=== PATIENT | female | born 1965 | race Caucasian/White ===

== ENCOUNTER 2024-08-08 15:54 | Emergency (ER) | payer OTHER, SELFPAY ==
[2024-08-08 15:57] VITALS: BP 162/82
--- NOTE | 2024-08-08 16:16 | ED.GENMED ---
History of Present Illness
<Radha Swanson PA-C - Last Filed: 08/08/24 20:36>
General
Chief Complaint: Blood Pressure Problem
Source: patient
Exam Limitations: none
Time Seen by Provider: 08/08/24 16:11
Nursing documentation reviewed up to this point in time: agreed with
History of Present Illness
History of Present Illness:
This is a 59-year-old female with a past medical history of hypertension, hyperlipidemia, IBS, diabetes presents emergency department today with concerns of left-sided jaw pain, intermittent chest pressure since this morning. Patient reports that
he started to develop a headache this morning. She feels it on the left side of her head. She states that she also started to develop soreness in her jaw, worse on the left. She denies worsening pain with eating. She also notes a slight chest
pressure. She denies shortness of breath, denies altered mental status. 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
taken off of it. Patient currently does not take anything for her blood pressure. She told her pcp about her ongoing symptoms and was told it was anxiety. She denies any changes to her vision. Denies head or neck trauma. Denies nausea or vomiting.
Review of Systems
<Radha Swanson PA-C - Last Filed: 08/08/24 20:36>
Review of Systems
All Other Systems: ROS reviewed and negative except as documented in HPI and ROS
Phy Exam
<Radha Swanson PA-C - Last Filed: 08/08/24 20:36>
Physical Exam
Physical Exam:
General: Patient is well appearing and in no acute distress; non-toxic
Skin: Warm and dry, no rashes or lesions
Head: Normocephalic, atraumatic. No temporal artery tenderness.
Eyes: Sclera non-icteric. EOMs intact. PERRLA.
Cardiac: Regular rate and rhythm, no murmurs
Peripheral Vascular: No lower extremity swelling or edema
Pulm: Normal respiratory effort, no wheezes, rales, or rhonchi
Abdomen: No abdominal tenderness to palpation
Neuro: CN II-XII intact, no focal neurologic deficits.
Psychiatric: Appropriate mood and affect.
Course
<Radha Swanson PA-C - Last Filed: 08/08/24 20:36>
Orders/Labs/Results
Orders:
Orders
08/08/24 15:58
EKG [Electrocardiogram (*1)] Urgent
Reason for Study: Chest Pain
EKG- Treatment ONCE
08/08/24 17:20
Complete Blood Count/With Diff Urgent
Comprehensive Metabolic Panel Urgent
Troponin I Urgent
08/08/24 17:21
Acetaminophen [Tylenol] 1,000 mg PO NOW STA
08/08/24 17:48
Electrocardiogram (*1) Urgent
Reason for Study: Shortness of Breath
EKG- Treatment ONCE
08/08/24 19:38
Troponin I Urgent
Abnormal Lab Results
08/08/24
17:20
RBC 4.16 L 10^6/uL
(4.20-5.40)
Hgb 11.6 L g/dL
(12.0-16.0)
Hct 33.9 L %
(37.0-47.0)
Potassium 5.2 H mmol/L
(3.5-5.1)
Carbon Dioxide 31 H mmol/L
(22-30)
Glucose 109 H mg/dl
(70-99)
08/08/24 17:20
08/08/24 17:20
Vital Signs
Initial and Last Documented VS:
Initial Vital Signs
Temp Pulse Resp BP Pulse Ox
97.9 F 66 18 162/82 99
08/08/24 15:57 08/08/24 15:57 08/08/24 15:57 08/08/24 15:57 08/08/24 15:57
Last Documented Vital Signs
Temp Pulse Resp BP Pulse Ox
97.9 F 66 18 137/71 96
08/08/24 15:57 08/08/24 15:57 08/08/24 15:57 08/08/24 20:00 08/08/24 20:15
<Tanika Dyson MD - Last Filed: 08/08/24 17:20>
Orders/Labs/Results
Orders:
Orders
08/08/24 15:58
EKG [Electrocardiogram (*1)] Urgent
Reason for Study: Chest Pain
EKG- Treatment ONCE
08/08/24 17:20
Complete Blood Count/With Diff Urgent
Comprehensive Metabolic Panel Urgent
Troponin I Urgent
08/08/24 17:21
Acetaminophen [Tylenol] 1,000 mg PO NOW STA
08/08/24 17:48
Electrocardiogram (*1) Urgent
Reason for Study: Shortness of Breath
EKG- Treatment ONCE
08/08/24 19:38
Troponin I Urgent
Abnormal Lab Results
08/08/24
17:20
RBC 4.16 L 10^6/uL
(4.20-5.40)
Hgb 11.6 L g/dL
(12.0-16.0)
Hct 33.9 L %
(37.0-47.0)
Potassium 5.2 H mmol/L
(3.5-5.1)
Carbon Dioxide 31 H mmol/L
(22-30)
Glucose 109 H mg/dl
(70-99)
08/08/24 17:20
08/08/24 17:20
Vital Signs
Initial and Last Documented VS:
Initial Vital Signs
Temp Pulse Resp BP Pulse Ox
97.9 F 66 18 162/82 99
08/08/24 15:57 08/08/24 15:57 08/08/24 15:57 08/08/24 15:57 08/08/24 15:57
Last Documented Vital Signs
Temp Pulse Resp BP Pulse Ox
97.9 F 66 18 137/71 96
08/08/24 15:57 08/08/24 15:57 08/08/24 15:57 08/08/24 20:00 08/08/24 20:15
<Radha Swanson PA-C - Last Filed: 08/08/24 20:36>
MDM/Problems Addressed
Differential Diagnosis Includes:
essential HTN, tension headache, ACS, TMJ syndrome, GCA, anxiety,
MDM/Problems Addressed:
59-year-old female presents emergency department today with concerns of hypertension as well as mild left jaw pain and left-sided headache. She also notes mild chest pressure that started today. She checked her blood pressure because she was
having a headache and noticed it was 180/94 at home. She does not take any medication for her blood pressure. On physical exam, she is no temporal artery tenderness, no concern for GCA at this time. Suspect tension headache. States that she has
had migraine headaches in the past but this headache feels different. She has no focal neurologic deficits. Highly doubt intraparenchymal hemorrhage or bleed at this time. No indication for acute lowering of her blood pressure. In light of
patient's jaw pain and chest pain, patient a cardiac workup with 2 negative troponins. On reassessment, patient's symptoms have completely resolved and her blood pressure does come down without intervention. Patient stable for discharge with her
primary care provider. Patient stable for discharge.
Chronic conditions affecting care:
hlp, diabetes, hypothyroidism
Acute Exacerbation and/or Progression of Chronic Illness:
n/a
<Radha Swanson PA-C - Last Filed: 08/08/24 20:36>
*Pulse Oximetry
Patient hypoxic: no
*Critical Care Note
Total Time (30-74mins, 75-104mins- exclusive of procedures): Not Applicable
Data Reviewed
Review of Other/Old Records Reveals: Records (Reviewed previous records in [facility], no previous ER physician documentation to review, no discharge summaries [facility] to)
Source: patient and records
Prescriptions/Medications Considered But Not Given:
n/a
Further Testing Considered But Not Given:
n/a
<Radha Swanson PA-C - Last Filed: 08/08/24 20:36>
Patient Management
Escalation/DeEscalation of care consider admission/obs:
Admit not indicated. Patient stable for discharge. Reviewed case with Dr. Lucio, [employer] on-call as well as my attending.
ED Attending Note
<Radha Swanson PA-C - Last Filed: 08/08/24 20:36>
-
Portions of this chart may have been created with voice recognition software.� Occasional wrong word or��sound alike� substitutions may have occurred due to the inherent limitations of voice recognition software.
<Tanika Dyson MD - Last Filed: 08/08/24 17:20>
ED Attending Note
Patient seen and examined by attending physician: Yes
I performed the substantive portion of visit, reviewed & personally made and approve the management plan that is documented in note by myself or IZZY.: Yes
ED Attending Note:
I have seen and evaluated the patient with a [id number] encounter. I have spoken to the [PA] and involved in the medical history, the physical exam, medical decision making.
Evaluation and management service: agree unless noted differently below.
Results interpretation: agree unless noted differently below.
Patient is a 59-year-old woman with history of hypertension presenting to the emergency department elevated blood pressure. Patient states that she had her blood pressure medications adjusted after her Wes-en-Y. She notes that in March she
had a lot of stress at that time her blood pressure was elevated. She talked her primary care doctor who suggested holding off on blood pressure medications given that she was undergoing a lot of stress. Her blood pressure did normalize. Today
she was sitting when she developed a left-sided headache and left-sided jaw pain. She checked her blood pressure and it was elevated with systolic in the 180s. She then called her primary care doctor who told her to come to the emergency
department for further evaluation. She does state that she does have a left headache that is dull right above her eye. It is very mild. She is also been having some left-sided chest pain but that has mostly resolved and now is just the jaw pain.
No shortness of breath. No vision changes or hearing changes. No numbness tingling. No weakness. On exam patient is resting comfortably. Her pupils are equal and extraocular muscles are intact. She does not have any focal deficits on exam.
She has equal strength and no sensory deficits. Her lungs are clear to auscultation bilaterally. Given the chest pain and jaw pain will rule out ACS with troponin including delta troponin. EKG per my interpretation with no significant ST changes.
Will treat her headache and reassess. Patient educated on keeping a log for her blood pressure so she can show her primary care doctor and get started on antihypertensives. I did discuss with patient that we will not be acutely dropping her blood
pressure unless if there are signs of endorgan damage.
Discharge Plan
Departure
Patient Disposition: Home (Routine Discharge)
Date of Disposition: 08/08/24
Time of Disposition: 20:16
Patient with high blood pressure during this ER visit?: Yes
Condition: Good
Discharge Problem:
Jaw pain, Hypertension
Instructions: Temporomandibular joint (TMJ) disorders, BLOOD PRESSURE, Chest Pain
Referrals:
NONE,* [Family Provider] -
Activity Restrictions/Additional Instructions:
Please keep a log of your blood pressure. Please check your blood pressure once daily in the morning. Please do this for 1 week and please schedule an appointment to review this log with your primary care provider.
Please return emergency department should you experience chest pain, shortness of breath, nausea or vomiting, persistent headaches or neck pain, weakness in one-sided body versus other, confusion, difficulty speaking, or any other signs or symptoms
concerning to you.
Interventions
Interventions:
*Risk Screen - Suicide Last Done: 08/08/24 15:57
*General Assessment Last Done: 08/08/24 15:57
*Neglect/Abuse Screening Last Done: 08/08/24 15:57
ED- Fall Risk Assessment Last Done: 08/08/24 17:31
*ED COVID-19 Vaccine History Last Done: 08/08/24 17:31
*Nursing Disposition Last Done: 08/08/24 20:30
ED- Cardiac Assessment Last Done: 08/08/24 17:31
ED- Neurological Assessment Last Done: 08/08/24 17:31
ED- Pulmonary Assessment Last Done: 08/08/24 17:31
Discharge Date and Time
Print Language: SENEGALESE
[2024-08-08 17:13] VITALS: BP 149/81
[2024-08-08] MEDS: TYLENOL 1000 MG PO (17:26)
[2024-08-08 17:29] VITALS: BMI 30.6
[2024-08-08 17:36] LABS: % Basophils 1.4 % (0-2); % Eosinophils 2.7 % (0-6); % Immature Granulocytes 0.2 % (0-0.5); % Lymphocytes 34.9 % (20.5-51.1); % Monocytes 6.9 % (1.7-9.3); % Neutrophils 53.9 % (42.2-75.2); Absolute Basophils 0.1 10^3/uL (0-0.2); Absolute Eosinophils 0.2 10^3/uL (0-0.7); Absolute Lymphocytes 2.2 10^3/uL (1.2-3.4); Absolute Monocytes 0.4 10^3/uL (0.1-0.6); Absolute Neutrophils 3.4 10^3/uL (1.4-6.5); Hematocrit 33.9 % (37.0-47.0); Hemoglobin 11.6 g/dL (12.0-16.0); Mean Corp Hgb Conc. 34.2 g/dL (33.0-37.0); Mean Corpuscular Hgb 27.9 pg (27.0-31.0); Mean Corpuscular Volume 81.5 fL (81.0-99.0); Mean Platelet Volume 9.1 fL (7.4-10.4); Nucleated Red Blood Cells % 0 %; Platelet Count 216 10^3/uL (130-400); Red Blood Cell Count 4.16 10^6/uL (4.20-5.40); Red Cell Dist. Width 12.4 % (11.5-14.5); White Blood Cell Count 6.4 10^3/uL (4.8-10.8)
[2024-08-08 17:49] LABS: ALT (SGPT) 28 U/L (0-35); AST (SGOT) 26 U/L (14-36); Albumin 4.4 g/dl (3.5-5.0); Alkaline Phosphatase 59 U/L (38-126); Blood Urea Nitrogen 13 mg/dl (7-17); Calcium 9.3 mg/dl (8.4-10.2); Carbon Dioxide 31 mmol/L (22-30); Chloride 103 mmol/L (98-107); Estimated Creatinine Clearance 57 ml/min; Glucose 109 mg/dl (70-99); Potassium 5.2 mmol/L (3.5-5.1); Sodium 140 mmol/L (135-145); Total Bilirubin 0.5 mg/dl (0.2-1.3); eGFR > 60.00
[2024-08-08 18:00] VITALS: BP 153/78
[2024-08-08 18:00] LABS: Troponin I < 0.012 ng/ml
[2024-08-08 19:00] VITALS: BP 148/67
[2024-08-08 20:00] VITALS: BP 137/71
[2024-08-08 20:10] LABS: Troponin I < 0.012 ng/ml
== END 2024-08-08 20:31 | disposition home or self-care (01) ==
LOC: EMR 15:54
PROVIDERS: Physician Assistant; EMERGENCY PHYSICIAN Student in an Organized Health Care Education/Training Program
DX: R68.84 Jaw pain (principal); I10 Essential (primary) hypertension; E78.5 Hyperlipidemia, unspecified; K58.9 Irritable bowel syndrome, unspecified; E11.9 Type 2 diabetes mellitus without complications
CPT/HCPCS: 99284; 80053; 84484; 85025; 93005